=== PATIENT | female | born 1970 | race Caucasian/White ===

== ENCOUNTER → 2022-02-06 | Outpatient (CLI) | payer MEDICARE, OTHER ==
[~2022-02-06] MED LIST: AZITHROMYCIN250 MG PO; OMNICEF 300 MG300 MG PO; POTASSIUM CHLO20 ME2 PO
== END ==
LOC: HEART CORB 08:37
DX: R07.89 Other chest pain (principal); R06.02 Shortness of breath; I10 Essential (primary) hypertension; I27.20 Pulmonary hypertension, unspecified; I34.0 Nonrheumatic mitral (valve) insufficiency
CPT/HCPCS: 93306

== ENCOUNTER 2022-04-03 17:29 | Emergency (ER) | payer MEDICARE, OTHER, MEDICAID ==
[2022-04-03 18:07] LABS: RED BLOOD COUNT 4.51 M/UL (4.00-5.10); WHITE BLOOD COUNT 16.6 K/UL (4.5-11.0)
[2022-04-03] MEDS ORDERED: ZOFRAN 4 MG TAB4 MG PO (21:12)
== END 2022-04-03 21:33 | disposition home or self-care (01) ==
LOC: ER1 17:29
PROVIDERS: Preventive Medicine Occupational Medicine
DX: G89.18 Other acute postprocedural pain (principal); R14.1 Gas pain; J44.9 Chronic obstructive pulmonary disease, unspecified; I10 Essential (primary) hypertension
CPT/HCPCS: 71045; 80053; 85025; 96374; 96375; 96376; 99284; J1170; J2405; Q9967